=== PATIENT | male | born 1985 | race Caucasian/White ===

== ENCOUNTER 2020-04-29 09:46 | Emergency (ER) | payer SELFPAY ==
[2020-04-29 17:05] LABS: SARS-CoV-2 MS2 Positive; SARS-CoV-2 N Gene Negative; SARS-CoV-2 S Gene Negative; SARS-CoV-2 by NAA Not Detected (NotDetected); SARS-CoV-2 orf1ab Negative
== END 2020-04-29 10:28 | disposition home or self-care (01) ==
LOC: ERS 09:46
DX: R09.81 Nasal congestion (principal); R43.8 Other disturbances of smell and taste; Z20.828 Contact with and (suspected) exposure to other viral communicable diseases; F17.210 Nicotine dependence, cigarettes, uncomplicated
CPT/HCPCS: 87635; 99283; U0003

== ENCOUNTER 2021-03-16 08:25 | Outpatient (CLI) | payer BC ==
[2021-03-16 09:57] LABS: #Basophils 0.1 10x3/uL (0.0-0.2); #Eosinphils 0.2 10x3/uL (0.0-0.5); #Monocytes 0.8 10x3/uL (0.0-1.1); %Basophils 0.8 % (0.0-2.0); %Lymphocytes 34.4 % (18.0-47.0); %Monocytes 8.2 % (0.0-10.0); %Neutrophils 54.1 % (40.0-75.0); Mean Corpuscular HGB CONC 33.4 g/dL (32.0-36.0); Mean Corpuscular Hemoglobin 29.4 pg (27.0-33.0); Mean Corpuscular Volume 87.9 fl (81.2-95.1); Platelet Count 340 10x3/uL (150-450); RBC Distribution Width 12.9 % (11.5-14.5); Red Blood Cell (RBC) Count 5.45 10x6/uL (4.32-5.72); White Blood Cell (WBC) Count 9.2 10x3/uL (3.5-10.5)
[2021-03-17 00:50] LABS: SARS-CoV-2 PCR by NAA Not Detected (NotDetected)
== END 2021-03-16 08:26 | disposition home or self-care (01) ==
LOC: LABBT 08:25
PROVIDERS: ATTEND Surgery
DX: Z01.812 Encounter for preprocedural laboratory examination (principal); D17.0 Benign lipomatous neoplasm of skin and subcutaneous tissue of head, face and neck; Z20.822 Contact with and (suspected) exposure to COVID-19
CPT/HCPCS: 85025; U0003; U0005

== ENCOUNTER 2021-03-18 08:25 | Day surgery (SDC) | payer BC ==
[2021-03-18] MEDS ORDERED: Levofloxacin 500 mg/D5W 100 ml Premix Bag ONE (09:12)
[2021-03-18] MEDS ORDERED: Lidocaine 1% w/Epinephrine 1:100K 20 ML VIAL ONE (11:02)
[2021-03-18] MEDS ORDERED: Bupivacaine 0.25% HCL 30 ML VIAL ONE (11:02)
[2021-03-18] MEDS ORDERED: Fentanyl 100 MCG/2 ML VIAL ONE (11:05)
[2021-03-18] MEDS ORDERED: Midazolam HCl 2 mg/2 ml Vial ONE (11:05)
[2021-03-18] MEDS ORDERED: Lidocaine 1% PF 5 ML VIAL ONE (11:23)
[2021-03-18] MEDS ORDERED: Dexamethasone 20 MG/5 ML VIAL ONE (11:23)
[2021-03-18] MEDS ORDERED: PROPOFOL 200 MG/20 ML VIAL ONE (11:23)
[2021-03-18] MEDS ORDERED: Ketorolac Tromethamine 30 MG/ML VIAL ONE (11:23)
[2021-03-18] MEDS ORDERED: Rocuronium Bromide 10 MG/ML (10ML VIAL) ONE (11:23)
[2021-03-18] MEDS ORDERED: Ondansetron PF 4 MG/2 ML Vial ONE (11:23)
[2021-03-18] MEDS ORDERED: Bacitracin Zinc Ointment 30 gm TUBE ONE (11:47)
[2021-03-18] MEDS ORDERED: SUGAMMADEX SODIUM 200 MG/2 ML VIAL ONE (12:09)
[2021-03-18] MEDS ORDERED: HYDROcodone/Acetaminophen 5/325 mg Tablet ONE (13:33)
== END 2021-03-18 13:50 | disposition home or self-care (01) ==
LOC: SDC 08:25
PROVIDERS: ATTEND Surgery
PROC: 0JB00ZZ Excision of Scalp Subcutaneous Tissue and Fascia, Open Approach (ICD-10-PCS; principal; 2021-03-18)
DX: D17.0 Benign lipomatous neoplasm of skin and subcutaneous tissue of head, face and neck (principal); Z88.0 Allergy status to penicillin
CPT/HCPCS: 88304; J1100; J1885; J1956; J2250; J2405; J2704; J3010; S0020

== ENCOUNTER 2022-10-24 20:54 | Emergency (ER) | payer BC, SELFPAY ==
[2022-10-24 22:17] LABS: #Basophils 0.1 thou/uL (0.0-0.2); #Eosinphils 0.1 thou/uL (0.0-0.7); #Lymphocytes 4.3 thou/uL (1.20-3.40); #Neutrophils 7.8 thou/uL (1.40-6.50); %Basophils 0.5 % (0.0-1.0); %Eosinophils 0.9 % (0.0-10.0); %Monocytes 7.6 % (0.0-10.0); Hemoglobin 16.1 g/dL (14.0-18.0); Mean Corpuscular Hemoglobin 31.1 pg (27.0-31.0); Mean Corpuscular Volume 88.7 fl (78.0-98.0); Mean Platelet Volume 7.5 fL (7.4-10.4); Platelet Count 304 10x3/uL (130-400); RBC Distribution Width 11.9 % (11.5-14.5); Red Blood Cell (RBC) Count 5.18 mill/uL (4.70-6.10); White Blood Cell (WBC) Count 13.3 10x3/uL (4.8-10.8)
[2022-10-24 22:31] LABS: ALT (SGPT) 30 U/L (8-55); AST (SGOT) 17 U/L (5-34); Albumin 4.3 g/dL (3.5-5.0); Alkaline Phosphatase 81 U/L (40-110); Anion Gap 15 mmol/L (10-20); BUN (Urea Nitrogen) 13 mg/dL (8.9-20.6); Bilirubin, Total 0.3 mg/dL (0.2-1.2); Calc. Creatinine Clearance 0 mL/min (70-130); Calcium 9.5 mg/dL (7.8-10.44); Carbon Dioxide 24 mmol/L (22-29); Chloride 105 mmol/L (98-107); Estimated GFR 93; Globulin 3.1 g/dL (2.4-3.5); Glucose 93 mg/dL (70-105); Lipase 35 U/L (8-78); Potassium 3.7 mmol/L (3.5-5.1); Protein, Total 7.4 g/dL (6.0-8.3); Sodium 140 mmol/L (136-145)
[2022-10-24] MEDS ORDERED: methylPREDNISolone Sod Succ/PF 125 MG/2 ML VIAL ONE (23:20)
[2022-10-24] MEDS ORDERED: Ketorolac Tromethamine 30 MG/ML VIAL ONE (23:20)
== END 2022-10-24 23:53 | disposition home or self-care (01) ==
LOC: ERS 20:54
DX: R07.9 Chest pain, unspecified (principal); M54.50 Low back pain, unspecified; E78.5 Hyperlipidemia, unspecified; I10 Essential (primary) hypertension; F17.210 Nicotine dependence, cigarettes, uncomplicated
CPT/HCPCS: 36415; 71045; 80053; 83690; 84484; 85025; 85379; 93005; 94760; 96372; J1885; J2930

== ENCOUNTER 2022-10-25 23:21 | Emergency (ER) | payer SELFPAY ==
[2022-10-25] MEDS ORDERED: LORazepam 2 MG/ML SYR.(CARPUJECT) ONE (23:33)
[2022-10-26 00:14] LABS: Hemoglobin 15.4 g/dL (14.0-18.0); Mean Corpuscular HGB CONC 34.8 g/dL (32.0-36.0); Mean Corpuscular Hemoglobin 30.9 pg (27.0-31.0); Mean Corpuscular Volume 88.8 fl (78.0-98.0); Mean Platelet Volume 7.6 fL (7.4-10.4); Platelet Count 331 10x3/uL (130-400); RBC Distribution Width 12.1 % (11.5-14.5); Red Blood Cell (RBC) Count 4.97 mill/uL (4.70-6.10); White Blood Cell (WBC) Count 25.7 10x3/uL (4.8-10.8)
[2022-10-26 00:27] LABS: Band 1 % (5-11); Lymphocytes 8 % (21-51); MDiff Complete? YES; Monocytes 7 % (0-10); Neutrophil 84 % (42-75)
[2022-10-26 00:34] LABS: ALT (SGPT) 32 U/L (8-55); AST (SGOT) 18 U/L (5-34); Albumin 4.1 g/dL (3.5-5.0); Alkaline Phosphatase 75 U/L (40-110); Anion Gap 12 mmol/L (10-20); BUN (Urea Nitrogen) 16 mg/dL (8.9-20.6); Bilirubin, Total 0.3 mg/dL (0.2-1.2); Calc. Creatinine Clearance 0 mL/min (70-130); Calcium 9.7 mg/dL (7.8-10.44); Carbon Dioxide 23 mmol/L (22-29); Chloride 108 mmol/L (98-107); Estimated GFR 107; Globulin 2.9 g/dL (2.4-3.5); Glucose 134 mg/dL (70-105); Potassium 3.9 mmol/L (3.5-5.1); Sodium 139 mmol/L (136-145)
== END 2022-10-26 02:21 | disposition home or self-care (01) ==
LOC: ERS 23:21
DX: R07.9 Chest pain, unspecified (principal); D72.829 Elevated white blood cell count, unspecified; E78.5 Hyperlipidemia, unspecified; I10 Essential (primary) hypertension; F17.210 Nicotine dependence, cigarettes, uncomplicated
CPT/HCPCS: 36415; 71045; 80053; 84484; 85025; 85379; 93005; 96374; J2060

== ENCOUNTER 2023-07-20 19:22 | Observation (INO) | payer SELFPAY ==
[2023-07-20 20:18] LABS: #Basophils 0.1 thou/uL (0.0-0.2); #Eosinphils 0.1 thou/uL (0.0-0.7); #Monocytes 1.1 thou/uL (0.11-0.59); #Neutrophils 8.9 thou/uL (1.40-6.50); %Basophils 0.5 % (0.0-1.0); %Eosinophils 0.7 % (0.0-10.0); %Lymphocytes 26.2 % (21.0-51.0); %Monocytes 7.9 % (0.0-10.0); %Neutrophils 64.3 % (42.0-75.0); Hematocrit 48.2 % (42.0-52.0); Hemoglobin 16.3 g/dL (14.0-18.0); Mean Corpuscular HGB CONC 33.8 g/dL (32.0-36.0); Mean Corpuscular Hemoglobin 29.3 pg (27.0-31.0); Mean Corpuscular Volume 86.5 fl (78.0-98.0); Mean Platelet Volume 9.3 fL (7.4-10.4); Platelet Count 351 10x3/uL (130-400); RBC Distribution Width 12.7 % (11.5-14.5); Red Blood Cell (RBC) Count 5.57 mill/uL (4.70-6.10); White Blood Cell (WBC) Count 13.9 10x3/uL (4.8-10.8)
[2023-07-20 20:44] LABS: ALT (SGPT) 29 U/L (8-55); AST (SGOT) 14 U/L (5-34); Albumin 4.4 g/dL (3.5-5.0); Alkaline Phosphatase 86 U/L (40-110); Anion Gap 11 mmol/L (10-20); BUN (Urea Nitrogen) 7 mg/dL (8.9-20.6); Bilirubin, Total 0.3 mg/dL (0.2-1.2); Calc. Creatinine Clearance 0 mL/min (70-130); Calcium 9.3 mg/dL (7.8-10.44); Carbon Dioxide 26 mmol/L (22-29); Chloride 104 mmol/L (98-107); Estimated GFR 87; Glucose 101 mg/dL (70-105); Protein, Total 7.4 g/dL (6.0-8.3); Sodium 137 mmol/L (136-145)
[2023-07-20] MEDS ORDERED: Lorazepam 1 MG TAB ONE (21:17)
[2023-07-20 22:43] LABS: Troponin I 0.034 ng/mL (< 0.028)
[2023-07-20] MEDS ORDERED: Aspirin Chewable 81 MG TAB ONE (23:10)
[2023-07-20] MEDS ORDERED: LORazepam 2 MG/ML SYR.(CARPUJECT) ONE (23:29)
[2023-07-21 00:43] LABS: Troponin I Less than 0.010 ng/mL (< 0.028)
[2023-07-21] MEDS ORDERED: Ondansetron PF 4 MG/2 ML Vial ONE (03:29)
[2023-07-21] MEDS ORDERED: Ondansetron ODT 4 MG TAB SL PRN (03:30)
[2023-07-21] MEDS ORDERED: Acetaminophen 325 MG TAB PO PRN ×2 (03:30→11:23)
[2023-07-21] MEDS: Ondansetron PF 4 MG/2 ML Vial IVP PRN ×2 (03:45→09:02)
[2023-07-21 04:08] LABS: Troponin I Less than 0.010 ng/mL (< 0.028)
[2023-07-21] MEDS ORDERED: Ventilator Sedation Protocol 1 EACH FS SCH (04:15)
[2023-07-21] MEDS ORDERED: Propofol 1,000 MG/100 ML VIAL IV PRN (04:30)
[2023-07-21] MEDS ORDERED: Lorazepam 2 MG/ML VIAL SLOW IVP PRN (04:30)
[2023-07-21] MEDS ORDERED: Fentanyl BOLUS 250 ML IVPB PRN (04:30)
[2023-07-21] MEDS ORDERED: Propofol BOLUS 1,000 MG/100 ML VIAL IV PRN (04:30)
[2023-07-21] MEDS ORDERED: Fentanyl CADD 100 ML IV SCH (04:30)
[2023-07-21] MEDS ORDERED: Morphine 2 MG/ML VIAL SLOW IVP PRN (04:30)
[2023-07-21] MEDS ORDERED: DISCONTINUE PREVIOUS NARCOTIC PAIN MEDICATIONS AND BENZODIAZEPINES FS SCH (04:30)
[2023-07-21] MEDS ORDERED: Nitroglycerin 0.4 MG TAB (25 Tab Bottle) SL PRN (05:09)
[2023-07-21] MEDS: Aspirin Chewable 81 MG TAB PO SCH (07:17)
[2023-07-21 09:43] VITALS: BMI 42.3
[2023-07-21] MEDS ORDERED: Regadenoson 0.4 MG/5 ML SYRINGE ONE (10:26)
[2023-07-21] MEDS ORDERED: hydrALAZINE 20 MG/ML VIAL SLOW IVP PRN (11:25)
[2023-07-21] MEDS ORDERED: hydrOXYzine 25 MG TAB PO PRN (11:26)
[2023-07-21] MEDS: Lorazepam 0.5 MG TAB PO PRN ×2 (12:12→19:03)
[2023-07-21 14:13] LABS: #Basophils 0.1 thou/uL (0.0-0.2); #Eosinphils 0.1 thou/uL (0.0-0.7); #Monocytes 0.8 thou/uL (0.11-0.59); %Basophils 0.5 % (0.0-1.0); %Eosinophils 0.7 % (0.0-10.0); %Lymphocytes 28.5 % (21.0-51.0); %Monocytes 6.8 % (0.0-10.0); %Neutrophils 63.3 % (42.0-75.0); Hematocrit 45.9 % (42.0-52.0); Hemoglobin 15.4 g/dL (14.0-18.0); Mean Corpuscular HGB CONC 33.6 g/dL (32.0-36.0); Mean Corpuscular Hemoglobin 28.9 pg (27.0-31.0); Mean Corpuscular Volume 86.3 fl (78.0-98.0); Mean Platelet Volume 9.6 fL (7.4-10.4); Platelet Count 325 10x3/uL (130-400); RBC Distribution Width 12.8 % (11.5-14.5); Red Blood Cell (RBC) Count 5.32 mill/uL (4.70-6.10); White Blood Cell (WBC) Count 11.1 10x3/uL (4.8-10.8)
[2023-07-21 14:33] LABS: Anion Gap 13 mmol/L (10-20); BUN (Urea Nitrogen) 11 mg/dL (8.9-20.6); Calc. Creatinine Clearance 257 mL/min (70-130); Calcium 8.9 mg/dL (7.8-10.44); Carbon Dioxide 24 mmol/L (22-29); Chloride 105 mmol/L (98-107); Estimated GFR 116; Glucose 92 mg/dL (70-105); Potassium 4.1 mmol/L (3.5-5.1); Sodium 138 mmol/L (136-145)
[2023-07-21] MEDS ORDERED: Ondansetron PF 4 MG/2 ML Vial IVP PRN (20:48)
[2023-07-21] MEDS ORDERED: Ondansetron ODT 4 MG TAB PO PRN (20:48)
[2023-07-21] MEDS ORDERED: Lorazepam 0.5 MG TAB PO SCH (22:15)
[2023-07-22 07:22] LABS: #Basophils 0.1 thou/uL (0.0-0.2); #Eosinphils 0.2 thou/uL (0.0-0.7); #Monocytes 0.8 thou/uL (0.11-0.59); #Neutrophils 6.1 thou/uL (1.40-6.50); %Basophils 0.6 % (0.0-1.0); %Eosinophils 1.5 % (0.0-10.0); %Lymphocytes 34.2 % (21.0-51.0); %Monocytes 7.3 % (0.0-10.0); %Neutrophils 56.2 % (42.0-75.0); Hematocrit 46.4 % (42.0-52.0); Hemoglobin 15.6 g/dL (14.0-18.0); Mean Corpuscular HGB CONC 33.6 g/dL (32.0-36.0); Mean Corpuscular Hemoglobin 28.9 pg (27.0-31.0); Mean Corpuscular Volume 85.9 fl (78.0-98.0); Mean Platelet Volume 9.4 fL (7.4-10.4); Platelet Count 306 10x3/uL (130-400); RBC Distribution Width 12.7 % (11.5-14.5); White Blood Cell (WBC) Count 10.9 10x3/uL (4.8-10.8)
[2023-07-22] MEDS: Lorazepam 0.5 MG TAB PO PRN (08:26)
[2023-07-22] MEDS: Aspirin Chewable 81 MG TAB PO SCH (08:34)
[2023-07-22 09:11] LABS: Anion Gap 12 mmol/L (10-20); BUN (Urea Nitrogen) 14 mg/dL (8.9-20.6); Calc. Creatinine Clearance 249 mL/min (70-130); Carbon Dioxide 24 mmol/L (22-29); Cardiac Risk 6.3 (Less than 4.5); Chloride 105 mmol/L (98-107); Cholesterol 208 mg/dl (< 200 Desired); Estimated GFR 115; Glucose 95 mg/dL (70-105); HDL Cholesterol 33 mg/dL (>60 Neg Risk); LDL Cholesterol, Calculated 139 mg/dL; Potassium 4.1 mmol/L (3.5-5.1); Sodium 137 mmol/L (136-145); Triglycerides 181 mg/dL (Less than 150)
[2023-07-22 11:30] VITALS: BP 130/86; TEMP 96.8
== END 2023-07-22 14:15 | disposition home or self-care (01) ==
LOC: ERS 19:22 → ERHOLD 23:32 → 2SE 07-21 08:07
PROVIDERS: ADMIT Student in an Organized Health Care Education/Training Program; ATTEND Family Medicine
DX: R07.9 Chest pain, unspecified (principal); I10 Essential (primary) hypertension; D72.829 Elevated white blood cell count, unspecified; E78.5 Hyperlipidemia, unspecified; F17.290 Nicotine dependence, other tobacco product, uncomplicated; Z88.0 Allergy status to penicillin; Z88.8 Allergy status to other drugs, medicaments and biological substances; Z79.899 Other long term (current) drug therapy
CPT/HCPCS: 36415; 71045; 78452; 80048; 80053; 80061; 84443; 84484; 85025; 93005; 93010; 93017; 94760; 96375; 96376; A9502; G0378; J2060; J2405; J2785; Q0162

== ENCOUNTER 2023-08-22 21:47 | Emergency (ER) | payer SELFPAY | END 2023-08-22 23:00 | disposition home or self-care (01) | LOC: ERS 21:47 | DX: R00.1 Bradycardia, unspecified (principal); I10 Essential (primary) hypertension; F41.9 Anxiety disorder, unspecified; F17.220 Nicotine dependence, chewing tobacco, uncomplicated; Z79.899 Other long term (current) drug therapy | CPT/HCPCS: 93005 ==